=== PATIENT | female | born 1960 | race Caucasian/White ===

== ENCOUNTER 2022-11-13 05:55 | Outpatient (CLI) | payer BC ==
[~2022-11-13] VITALS: Ht 172.7 cm; Wt 125.7 kg
[2022-11-13] MEDS ORDERED: LISD10CA PO (13:02)
[2022-11-13] MEDS ORDERED: ACET-93 PO (13:02)
[2022-11-13] MEDS ORDERED: OMEP20TA56 PO (13:02)
[2022-11-13] MEDS ORDERED: SERT-413 PO (13:02)
[2022-11-13] MEDS ORDERED: SEMA0.25 SQ (13:02)
[2022-11-13] MEDS ORDERED: CELE100C84 PO (13:02)
[2022-11-13] MEDS ORDERED: CETI10CA PO (13:02)
[2022-11-13] MEDS ORDERED: LOSA100T57 PO (13:02)
== END 2022-11-13 13:06 ==
LOC: PREOP 05:55
PROVIDERS: ATTEND Surgery
DX: Z01.818 Encounter for other preprocedural examination (principal)

== ENCOUNTER 2022-11-26 12:39 | Day surgery (SDC) | payer BC ==
[~2022-11-26] VITALS: Ht 172.7 cm; Wt 125.7 kg
[~2022-11-26 12:39] MED LIST: ACET-93 PO; CELE100C84 PO; CETI10CA PO; LISD10CA PO; LOSA100T57 PO; OMEP20TA56 PO; SEMA0.25 SQ; SERT-413 PO
[2022-11-26] MEDS ORDERED: LACTATED RINGERS 1,000 ML IV STA (12:45)
[2022-11-26] MEDS ORDERED: HURRICAINE EXT TUBE (BENZOCAINE) XX PRN (12:45)
--- NOTE | 2022-11-26 13:09 | Progress Note-Pre Operative ---
Pre-Operative Progress Note Date of Available H&P: Nov 04, 2022 Date H&P Reviewed: Nov 26, 2022 Time H&P Reviewed: 13:08 History & Physical: H&P Reviewed, Patient Examed, No changes noted Pre-Operative Diagnosis: GERD and Chronic Cough MAINOR STALLINGS DO Nov 26, 2022 13:09
[2022-11-26 13:27] VITALS: BP 143/74
[2022-11-26] MEDS ORDERED: PROPOFOL INJECTION 50 ML IV ONE (13:37)
--- NOTE | 2022-11-26 13:48 | Progress Note-Post Operative ---
Post-Operative Progess Note Surgeon (s)/Grove Worker (s) Surgeon MAINOR STALLINGS DO Grove Worker: N/A Pre-Operative Diagnosis GERD and Chronic Cough Post-Operative Diagnosis Small H.H Procedure & Operative Findings Date of Procedure 11/26/22 Procedure Performed/Findings EGD w/ biopsies Anesthesia Type per [employer]CTION OFFICER Estimated Blood Loss Estimated blood loss (mL): None Specimens/Packing Specimens Removed Antrum; GEJ MAINOR STALLINGS DO Nov 26, 2022 13:48
[2022-11-26] MEDS ORDERED: PANT40TA2 PO (13:50)
[2022-11-26 13:55] VITALS: BP 139/65
[2022-11-26 14:00] VITALS: BP_SYST 139; BP_DIAS 68; BP_DIAS 69
[2022-11-26 14:30] VITALS: BP 139/69
--- NOTE | 2022-11-26 15:00 | Anesthesia-General Post-Op ---
MAC Patient Condition Mental Status/LOC: Same as Preop Cardiovascular: Satisfactory Nausea/Vomiting: Absent Respiratory: Satisfactory Pain: Controlled Complications: Absent Post Op Complications Complications None Follow Up Care/Instructions Patient Instructions None needed. Anesthesiology Discharge Order Discharge Order Patient is doing well, no complaints, stable vital signs, no apparent adverse anesthesia problems. No complications reported per nursing. TIFFANY SCHAWRZ CRNA Nov 26, 2022 15:00
--- NOTE | 2022-11-26 20:23 | OPERATIVE REPORT ---
DATE OF SERVICE: 11/26/2022 PREOPERATIVE DIAGNOSES: Gastroesophageal reflux disease and chronic cough. POSTOPERATIVE DIAGNOSES: Small small hiatal hernia, slight gastritis. PROCEDURES: EGD with biopsies. SURGEON: Mainor Rao DO ANESTHESIA: Per [employer] MANAGER. ESTIMATED BLOOD LOSS: None. COMPLICATIONS: None. INDICATIONS: The patient is a 62-year-old female with a chronic cough and GERD symptoms. She understands risks and benefits of procedure and wishes to proceed. Consent was signed in chart. DESCRIPTION OF PROCEDURE: The patient was taken to endoscopy suite, placed in left lateral recumbent position. Timeout was performed. Scope was inserted in the mouth, down the esophagus, stomach, into the duodenum without difficulty. No polyps, masses or ulcerations within the duodenum. Scope was then slowly retracted back into stomach where it was further insufflated. Slight gastritis appearance. Biopsy of the antrum was obtained. Scope was retroflexed noting a small sliding hiatal hernia, no other pathology. Scope was returned to its normal position, slowly withdrawn until distal esophagus. Biopsy of GE junction was obtained. Scope was slowly retracted back until completely removed, noting no other pathology. The patient tolerated the procedure well without complications, taken to recovery room in stable condition. RECOMMENDATIONS: The patient will be started on Protonix 40 mg daily. We will stop omeprazole. We will see how her symptoms are doing. She will follow up in a couple of weeks. Job ID: [id number] DocumentID: [id number] Dictated Date: 11/26/2022 13:50:54 Acetylene Cutter Date: 11/26/2022 20:21:00 Dictated By: MAINOR RAO DO
== END 2022-11-26 14:42 | disposition home or self-care (01) ==
LOC: ENDO 12:39
PROVIDERS: ATTEND Surgery
DX: K29.70 Gastritis, unspecified, without bleeding (principal); K44.9 Diaphragmatic hernia without obstruction or gangrene; K21.00 Gastro-esophageal reflux disease with esophagitis, without bleeding; K31.89 Other diseases of stomach and duodenum; R05.3 Chronic cough; Z79.899 Other long term (current) drug therapy; Z87.891 Personal history of nicotine dependence; E66.01 Morbid (severe) obesity due to excess calories; Z68.41 Body mass index [BMI] 40.0-44.9, adult
CPT/HCPCS: 88305